=== PATIENT | male | born 1990 | race Caucasian/White ===

== ENCOUNTER 2018-05-19 20:08 | Emergency (ER) | payer SELFPAY ==
[2018-05-19] MEDS ORDERED: Amoxicillin/Clavulanate TAB* 875 MG PO ONE (20:54)
--- NOTE | 2018-05-19 20:55 | UC ---
Bite Injury/Animal HPI - HPI Summary HPI Summary: C/O infected cat bite right hand. Bitten this morning and now more red swollen and painful. - History of Current Complaint Chief Complaint: UCUpperExtremity Stated Complaint: RIGHT HAND CAT BITE Time Seen by Provider: 05/19/18 20:49 Hx Obtained From: Patient Severity Currently: Mild Severity Initially: Moderate Pain Intensity: 4 Onset/Duration: Sudden Onset Type of Bite: Pet - Cat at a group home Has Animal Been Immunized?: Yes Character: Puncture Aggravating Factor(s): Exertion Alleviating Factor(s): Nothing Associated Signs And Symptoms: Positive: Erythema, Swelling Hx of Bite: Provoked by: - handling animal Animal Available for Observation: Yes Animal Control Notified: Yes - Risk Factors Infection/Sepsis Risk Factors: Full-Thickness Puncture - Allergies/Home Medications Allergies/Adverse Reactions: Allergies Allergy/AdvReac Type Severity Reaction Status Date / Time No Known Allergies Allergy Verified 05/19/18 20:27 Home Medications: Home Medications Fexofenadine (NF) [Kassi (NF)] 60 mg PO DAILY 05/19/18 [History Confirmed ] Ibuprofen 400 mg PO ONCE 05/19/18 [History Confirmed 05/19/18] Naproxen [Naproxen 375 mg tab] 375 mg PO ONCE 05/19/18 [History Confirmed ] PMH/Surg Hx/FS Hx/Imm Hx Psychological History: Depression - Surgical History Surgical History: None - Family History Known Family History: Positive: Cardiac Disease, Hypertension, Diabetes - Social History Occupation: Employed Full-time Lives: With Family Alcohol Use: Weekly Substance Use Type: None Smoking Status (MU): Never Smoked Tobacco Review of Systems Skin: Other - redness swelling right index finger puncture wounds Is Patient Immunocompromised?: No All Other Systems Reviewed And Are Negative: Yes Physical Exam Triage Information Reviewed: Yes Appearance: Well-Appearing, No Pain Distress, Obese Vital Signs: Initial Vital Signs Temp 98.6 F 05/19/18 20:23 Pulse 72 05/19/18 20:23 Resp 19 05/19/18 20:23 BP 131/86 05/19/18 20:23 Pulse Ox 100 05/19/18 20:23 Vital Signs Reviewed: Yes Eyes: Positive: Conjunctiva Clear Neck exam: Normal Respiratory: Positive: Lungs clear Cardiovascular Exam: Normal Musculoskeletal: Positive: ROM Limited @ - right index finger Neurological Exam: Normal Psychological Exam: Normal Skin: Positive: Other - erythema and swelling right index finger. Bite Injury Course/Dx - Differential Dx/Diagnosis Differential Diagnosis/HQI/PQRI: Cellulitis, Laceration, Puncture, Superficial Infection Provider Diagnoses: Cat bite right hand. Cellulitis right index finger. Discharge - Sign-Out/Discharge Documenting (check all that apply): Patient Departure All imaging exams completed and their final reports reviewed: No Studies - Discharge Plan Condition: Stable Disposition: HOME Prescriptions: Amoxicillin/Clavulanate TAB* [Augmentin TAB 875*] 875 mg PO BID #14 tab Patient Education Materials: Animal Bite (ED), Cellulitis (ED), Amoxicillin/ Clavulanate Potassium (By mouth) Referrals: No Primary Care Phys,NOPCP [Primary Care Provider] - Additional Instructions: If you get diarrhea from the augmentin, use 1 imodium with each antibiotic to prevent the diarrhea. - Billing Disposition and Condition Condition: STABLE Disposition: Home Images Hands: 1 - Puncture wounds 2 - infected puncture wounds with erythema and swelling, and pain.
== END 2018-05-19 21:09 | disposition home or self-care (01) ==
LOC: UCCORT 20:08
DX: L03.011 Cellulitis of right finger (principal); S61.451A Open bite of right hand, initial encounter; W55.01XA Bitten by cat, initial encounter; Y92.9 Unspecified place or not applicable
CPT/HCPCS: 99202; A9270-GY; G0463

== ENCOUNTER 2019-03-07 12:33 | Emergency (ER) | payer SELFPAY ==
[2019-03-07 12:56] VITALS: BP 126/70
--- NOTE | 2019-03-07 13:12 | UC ---
Skin Complaint HPI - HPI Summary HPI Summary: 28-year-old male presents with cat bite.c/o R index finger cat bite that occurred about 9 am today while volunteering at [employer]. Cat should be UTD with vaccines. Nothing has been taken prior to arrival. Patient not up-to- date with tetanus shot. Patient is a self-pay patient does not want to pay for shot At this time. Mild pain with movement. Rest flow improved symptoms. Patient has had previous cat bites and then placed on Augmentin without difficulty. No fevers or chills or difficulty breathing. No other concerns. - History of Current Complaint Chief Complaint: UCBiteInjury Time Seen by Provider: 03/07/19 12:48 Stated Complaint: CAT BITE Hx Obtained From: Patient Pain Intensity: 4 - Allergy/Home Medications Allergies/Adverse Reactions: Allergies Allergy/AdvReac Type Severity Reaction Status Date / Time No Known Allergies Allergy Verified 03/07/19 12:50 PMH/Surg Hx/FS Hx/Imm Hx Previously Healthy: Yes - Surgical History Surgical History: None - Family History Known Family History: Positive: Cardiac Disease, Hypertension, Diabetes - Social History Alcohol Use: Occasionally Substance Use Type: None Smoking Status (MU): Never Smoked Tobacco - Immunization History Most Recent Tetanus Shot: unknown Review of Systems All Other Systems Reviewed And Are Negative: Yes Skin: Positive: Other - cat bite on right index finger Physical Exam Triage Information Reviewed: Yes Appearance: Well-Appearing, No Pain Distress, Well-Nourished Vital Signs: Initial Vital Signs Temp 98.2 F 03/07/19 12:51 Pulse 75 03/07/19 12:51 Resp 16 03/07/19 12:51 BP 126/70 03/07/19 12:51 Pulse Ox 100 03/07/19 12:51 Eye Exam: Normal Neck exam: Normal Neck: Positive: 1 Respiratory Exam: Normal Cardiovascular Exam: Normal Musculoskeletal Exam: Normal Neurological Exam: Normal Psychological Exam: Normal Skin Exam: Normal Images Hands: 1 - Small puncture hole no discharge 2 - Small puncture hole without discharge Course/Dx - Course Course Of Treatment: Patient had the area cleansed with Hibiclens. He declined the tetanus shot and will go get it from the health department. Given information for health department. Please on Augmentin. If symptoms persist or concern for infection sets and he is aware to go to emergency room to be evaluated by orthopedic surgery. He is aware and agreeable to pLan and side effects from medication - Diagnoses Provider Diagnosis: Cat bite involving extremity Discharge - Sign-Out/Discharge Documenting (check all that apply): Patient Departure All imaging exams completed and their final reports reviewed: No Studies - Discharge Plan Condition: Good Disposition: HOME Prescriptions: Amoxicillin/Clavulanate TAB* [Augmentin TAB 875*] 875 mg PO BID #20 tab Patient Education Materials: Animal Bite (ED) Referrals: No Primary Care Phys,NOPCP [Primary Care Provider] - 3 Days Additional Instructions: Please go to health department to get tetanus shot as soon as you can - Billing Disposition and Condition Condition: GOOD Disposition: Home
== END 2019-03-07 13:34 | disposition home or self-care (01) ==
LOC: UCCORT 12:33
DX: S61.256A Open bite of right little finger without damage to nail, initial encounter (principal); W55.01XA Bitten by cat, initial encounter; Y93.9 Activity, unspecified; Y92.89 Other specified places as the place of occurrence of the external cause; Y99.2 Volunteer activity
CPT/HCPCS: 99212; G0463